=== PATIENT | female | born 1945 | race Caucasian/White ===

== ENCOUNTER 2023-12-25 11:15 | Emergency (ER) | payer MEDICARE, SELFPAY ==
[2023-12-25] VITALS (9 sets, daily range): BP systolic 141–168; BP diastolic 73–89; PULSE 64–75; RESP 18; TEMP 36.7; O2SAT 95–98; BMI 26.4
--- NOTE | 2023-12-25 11:24 | PC.NURSE ---
DR BLOOM AT BEDSIDE
--- NOTE | 2023-12-25 11:33 | CT_ITS ---
FINAL REPORT TECHNIQUE: Thin section axial images were obtained through the abdomen after intravenous contrast. Reconstruction images were obtained from the axial data. Exam was performed using dose reduction techniques. CLINICAL HISTORY: RLQ and suprapubic ttp FINDINGS: The lung bases are clear. The liver is homogeneous. The gallbladder is present. The spleen, adrenal glands, and pancreas are unremarkable. There are bilateral hypodense renal lesions, may represent cysts. Abdominal GI tract is without acute abnormality. There is no abdominal lymphadenopathy or ascites. The uterus is absent. The appendix is normal. There is diverticulosis. There is mild long segment wall thickening of the distal colon, mild colitis is not excluded. There is no pelvic lymphadenopathy or ascites. No acute osseous abnormalities identified. IMPRESSION: Bilateral renal lesions, may represent cysts. Long segment wall thickening of the distal colon, mild colitis is not excluded. Reviewed, Interpreted and Dictated by Becki Walker MD Transcribed by Vicki Pizano Authenticated and [facility]
--- NOTE | 2023-12-25 11:35 | ED_ITS ---
Discharge Plan Disposition Patient Disposition: Home, Self-Care Prescriptions Prescriptions: New dicyclomine 20 mg tablet 20 mg PO TID PRN (Reason: abdominal pain or spasm) 7 Days Qty: 21 0RF Referrals Follow up/Referrals: Lukas Humphrey MD [Staff Physician] - See instructions Carlos Manuel Torres DO [Staff Physician] - See instructions Jerad Nguyen MD [Staff Physician] - See instructions Activity Restrictions/Add. Instructions Additional Instructions/Restrictions: No emergent medical condition identified today. There is evidence of mild colitis on your CAT scan which is possibly infectious following recent antibiotic use cannot rule out C. difficile colitis at this point. Please take your stool specimen to primary care doctor tomorrow. We have made an appointment with Dr. Carlos Manuel Torres for you to see tomorrow as a new patient. Additionally I would recommend you follow-up with our urologist Dr. Humphrey or the urologist of your choosing as you did have blood in your urine and some questionable lesions on your kidneys which are most likely cysts but genitourinary malignancy is on the differential. Lastly given the fact you have not had a colonoscopy many years and that you have undiagnosed lower abdominal discomfort please follow-up with Dr. Beck Ruano for an outpatient colonoscopy Clinical Impressions Clinical Impression: Abdominal pain, lower, Diarrhea, Hematuria, Colitis, Renal lesion Instructions Patient Instructions: DI for Acute Abdominal Pain Discharge ED Provider: Mariana Bean General Adult HPI General Chief complaint: Abdominal Pain Stated complaint: Abd pain on R side Time Seen by Provider: 12/25/23 11:19 History of Present Illness HPI narrative: Is a 78-year-old female presenting to the emergency department today with prim [facility] for abdominal pain. States this began 3 weeks ago she went to her primary care doctor was diagnosed with urinary tract infection and started on ciprofloxacin. Subsequently had worsening abdominal pain and went to the emergency department [facility] in [place] and had a CT scan was also told nothing abnormal there but also that she had a urinary tract infection and a culture was sent. Subsequently after that she was started on Augmentin she finished that without any improvement. Now states she has had worsening diarrhea up to 6 times a day most recently yesterday. No blood but with worsening abdominal pain the right lower quadrant and suprapubic region. Has not had any diarrhea today yet. Denies any fevers or chills. States her urine is brown in color. Denies any myalgias. States that she just wants relief from her symptoms. Related Data Previous Rx's Medication Instructions Recorded dicyclomine 20 mg tablet 20 mg PO TID PRN abdominal pain or 12/25/23 spasm 7 days #21 tabs Allergies Allergy/AdvReac Type Severity Reaction Status Date / Time amlodipine Allergy Verified 12/25/23 13:24 codeine Allergy Verified 12/25/23 13:24 sulfamethoxazole Allergy Verified 12/25/23 13:24 [From Bactrim] trimethoprim [From Bactrim] Allergy Verified 12/25/23 13:24 [facility] Disclaimer: The information contained in this section may have been updated after the patient was seen, as this information can be updated by other users. Social History Smoking Status: Never smoker alcohol intake: never current occupational status: other Travel in the last 8 weeks: None ROS Obtained: Yes All systems reviewed & no additional complaints except as documented Physical Exam General General appearance: alert Respiratory Respiratory exam: Present normal lung sounds bilaterally Cardiovascular Cardiovascular exam: Present regular rate Abdominal Exam Abdominal exam: Present soft and tenderness (Right lower quadrant and suprapubic tenderness to palpation with no rebound or guarding); Absent distention Neurological Exam Neurological exam: Present alert Medical Decision Making Emiliano Inquiry Pt receiving controlled substance: No Vital Signs: 12/25/23 11:16 12/25/23 11:34 12/25/23 12:00 Temperature 98.0 F Temperature Source Oral Pulse Rate 69 64 Pulse Rate [Right] 70 Respiratory Rate 18 Blood Pressure 162/82 H 141/73 H Blood Pressure [Right Arm] 162/82 H Blood Pressure Mean 95 Blood Pressure Mean [Right Arm] 108 Blood Pressure Source [Right Arm] Automatic Cuff 02 Sat by Pulse Oximetry 98 98 98 Oxygen Delivery Method Room Air Room Air Room Air 12/25/23 12:30 12/25/23 13:00 12/25/23 13:30 Temperature Temperature Source Pulse Rate 75 64 69 Pulse Rate [Right] Respiratory Rate Blood Pressure 168/83 H 154/77 H 160/80 H Blood Pressure [Right Arm] Blood Pressure Mean 104 102 101 Blood Pressure Mean [Right Arm] Blood Pressure Source [Right Arm] 02 Sat by Pulse Oximetry 98 97 96 Oxygen Delivery Method Room Air Room Air Room Air 12/25/23 14:00 Temperature Temperature Source Pulse Rate 70 Pulse Rate [Right] Respiratory Rate Blood Pressure 154/76 H Blood Pressure [Right Arm] Blood Pressure Mean 102 Blood Pressure Mean [Right Arm] Blood Pressure Source [Right Arm] 02 Sat by Pulse Oximetry 95 Oxygen Delivery Method Room Air Lab Data Lab results reviewed: Yes I reviewed the patient's lab results. Lab Results 12/25/23 11:38: WBC 6.7, RBC 4.82, Hgb 13.6, Hct 43.4, MCV 90.0, MCH 28.3, MCHC 31.5 L, RDW 14.5, Plt Count 196, MPV 8.8, Neut % (Auto) 63.3, Lymph % (Auto) 26.3, [place] % (Auto) 7.2, Eos % (Auto) 2.8, Baso % (Auto) 0.4, Neut # (Auto) 4.2, Lymph # (Auto) 1.8, [place] # (Auto) 0.5, Eos # (Auto) 0.2, Baso # (Auto) 0.0, Sodium 139, Potassium 3.9, Chloride 107, Carbon Dioxide 29, Anion Gap 6.9, BUN 15, Creatinine 0.60, Estimated Creat Clear 47, Estimated GFR 97, Est GFR ( Amer) 117, Glucose 102 H, Lactate 0.8, Calcium 9.8, Phosphorus 3.8, Magnesium 1.9, Total Bilirubin 1.0, AST 29, ALT 16, Alkaline Phosphatase 102, Total Creatine Kinase 58, Total Protein 6.8, Albumin 4.1, Globulin 2.7, Albumin/Globulin Ratio 1.5 12/25/23 13:19: Urine Color Yellow, Urine Appearance Clear, Urine pH 6.0, Ur Specific [place] 1.010, Urine Protein Negative, Urine Glucose (UA) Negative, Urine Ketones Trace, Urine Blood 1+, Urine Nitrate Negative, Urine Bilirubin Negative, Urine Urobilinogen 0.2, Ur Leukocyte Esterase Negative, Urine RBC None, Urine WBC None, Ur Squamous Epith Cells Occasional, Urine Bacteria None 12/25/23 11:38 12/25/23 11:38 Orders (Tests/Meds): ED MEDICATIONS Discontinued Medications Generic Name Dose Route Start Last Admin Trade Name Freq PRN Reason Stop Dose Admin Acetaminophen 1,000 mg 12/25/23 11:33 12/25/23 11:42 Acetaminophen 1,000mg/100ml Vial IV 12/25/23 11:34 1,000 mg ONCE ONE Administration Lactated Ringer's 1,000 mls @ 999 mls/hr 12/25/23 11:45 12/25/23 11:42 Lactated Ringer's 1000 Ml Bag IV 12/25/23 12:45 999 mls/hr .Q1H1M HARISH Administration Iopamidol 75 ml 12/25/23 12:17 12/25/23 12:17 Iopamidol-370 (76%);100ml Bottle IV 12/25/23 12:18 75 ml ONCE ONE Administration Ondansetron HCl 4 mg 12/25/23 11:33 12/25/23 11:42 Ondansetron 4mg/2ml Vial IV 12/25/23 11:34 4 mg ONCE ONE Administration Sodium Chloride 10 ml 12/25/23 12:17 12/25/23 12:17 Sodium Chloride 0.9% 10ml Syr (Rad Only) IV 12/25/23 12:18 10 ml ONCE ONE Administration ORDERS Category Date Time Status CT abdomen pelvis w con Stat Cat Scan 12/25/23 11:33 Taken CBC w/Auto Diff [Complete Blood Count Auto Diff] Stat Lab 12/25/23 11:38 Completed CK [Creatine Kinase] Stat Lab 12/25/23 11:38 Completed CMP [Comprehensive Metabolic Panel] Stat Lab 12/25/23 11:38 Completed Diarrhea 23 Panel, PCR Stat Lab 12/25/23 11:33 Ordered Lactic Acid Stat Lab 12/25/23 11:38 Completed Magnesium Stat Lab 12/25/23 11:38 Completed Phosphorous Stat Lab 12/25/23 11:38 Completed UA [Urinalysis and Microscopic] Stat Lab 12/25/23 13:19 Results Medical Decision Narrative: Patient is a 78-year-old female presenting today with multiple complaints including right lower quadrant and suprapubic abdominal pain and dysuria and brown-colored urine as well as diarrhea. Differential includes refractory urinary tract infection with multidrug-resistant organism, fistula tract, superimposed colitis such as C. difficile colitis after the recent antibiotic use. Other forms of colitis such as ischemic or inflammatory colitis are also in the differential as well as other surgical pathology such as appendicitis. Will get a contrasted CT scan blood work comprehensive GI PCR panel and will reassess. IV fluids pain medicine nausea medicine have been administered and will reassess. Reassessment 2:52 PM labs unremarkable aside from some hematuria and CT scan I personally interpreted which shows no acute intra-abdominal pathology. There is questionable thickening of the bowel which may be mild colitis. I do suspect that she could possibly have C. difficile colitis but she was unable to provide a stool specimen while in the emergency department. A sample Has been sent with her and she has been given a follow-up appointment tomorrow with Dr. Carlos Manuel Torres to be a new patient. 2 other things 1 is that she has persistent lower abdominal discomfort no obvious pathology at the moment. Her abdominal pain preceded the diarrhea symptoms that she had to is likely not completely attributable to colitis. She has not had a colonoscopy many years and referral was made to our general surgeon to have this looked into further given the uncertainty of the ongoing symptoms. Lastly more concerning if she has had hematuria I was able to get the results from [facility] and she did not have clear evidence of urinary tract infection has failed to antibiotic regimens since that time it is not clear that this is from a urinary tract infection will not treat this further. However she also has some nonspecific lesions in bilateral kidneys which are most likely cysts but it is possible that she has an under lying genitourinary malignancy which could be causing her symptoms as well. Overall there remains diagnostic uncertainty the patient is very aware of this she will follow-up with urology general surgery/gastroenterology and her primary care physician. Critical Care Critical Care Time Critical Care Time: No
--- NOTE | 2023-12-25 11:40 | PC.NURSE ---
called [facility] to get records from pt been seen sometime in the last month. Medical records at [facility] states pt was seen in er on 12/11/23 and they would fax over md note,labs and ct scan
[2023-12-25] MEDS: ACETAMINOPHEN 1,000MG/100ML VIAL 1000 MG IV (11:42)
[2023-12-25] MEDS: LACTATED RINGERS 1000ML 1,000 ML 999 ML IV (11:42)
[2023-12-25] MEDS: ONDANSETRON 4MG/2ML VIAL 4 MG IV (11:42)
[2023-12-25 11:53] LABS: Basophils % 0.4 % (0.1-2.0); Eosinophils # 0.2 K/mm3 (0.0-0.4); Eosinophils % 2.8 % (0.1-12.0); Hematocrit 43.4 % (37.0-47.0); Hemoglobin 13.6 g/dL (12.2-16.2); Lymphocytes # 1.8 K/mm3 (0.7-4.5); Lymphocytes % 26.3 % (10-50); Mean Corpuscular HGB Conc 31.5 g/dL (31.8-35.4); Mean Corpuscular Hemoglobin 28.3 pg (27.0-31.2); Mean Platelet Volume 8.8 fl (7.4-10.4); Monocytes # 0.5 K/mm3 (0.1-1.0); Monocytes % 7.2 % (1.7-9.3); Neutrophils # 4.2 K/mm3 (1.8-7.8); Neutrophils % 63.3 % (37.0-80.0); Platelet Count 196 K/mm3 (142-424); Red Blood Count 4.82 M/mm3 (4.20-5.40); Red Cell Distribution Width 14.5 % (11.5-17.5); White Blood Count 6.7 K/mm3 (4.8-10.8)
[2023-12-25 11:54] LABS: Chloride 107 mmol/L (98-107); Potassium 3.9 mmoL/L (3.5-5.1); Sodium 139 mmol/L (136-145)
[2023-12-25 11:56] LABS: Alanine Aminotransferase 16 U/L (12-78); Alkaline Phosphatase 102 U/L (38-126); Aspartate Amino Transferase 29 U/L (14-36); Blood Urea Nitrogen 15 mg/dl (7-17); Creatinine Clearance Estimated 47 mL/min (50-200); Estimated Glomerular Filt Rate 97 ml/min (>60); GFR (African American) 117 ML/MIN (>60)
[2023-12-25 11:57] LABS: Albumin Level 4.1 g/dl (3.5-5.0); Albumin/Globulin Ratio 1.5 (1.1-1.8); Anion Gap 6.9 mEq/L (5-15); Calcium 9.8 mg/dl (8.4-10.2); Carbon Dioxide 29 mmol/L (22.0-30.0); Creatine Kinase 58 U/L (30-135); Globulin 2.7 g/dL (1.3-3.2); Glucose 102 mg/dl (74-100); Magnesium 1.9 mg/dl (1.6-2.3); Phosphorous 3.8 mg/dl (2.5-4.5); Total Protein,Serum 6.8 g/dl (6.3-8.2)
[2023-12-25 11:58] LABS: Lactic Acid 0.8 mmol/L (0.7-2.1)
--- NOTE | 2023-12-25 12:03 | PC.NURSE ---
fax was recieved from [facility] our er Md is still wanting urine culture and sensitivity report if they have, so calling back to [facility]
--- NOTE | 2023-12-25 12:08 | PC.NURSE ---
Patient to radiology.
[2023-12-25] MEDS: SODIUM CHLORIDE 0.9% 10ML SYR (RAD ONLY) 10 ML IV (12:17)
[2023-12-25] MEDS: IOPAMIDOL-370 (76%);100ML BOTTLE 75 ML IV (12:17)
--- NOTE | 2023-12-25 12:17 | PC.NURSE ---
Patient returned from radiology.
--- NOTE | 2023-12-25 12:30 | PC.NURSE ---
pt was given a warm blanket and pillow with case no other needs at this time,call light at bs
--- NOTE | 2023-12-25 12:30 | PC.NURSE ---
PT PROVIDED WARM BLANKET AND PILLOW. CALL LIGHT WITHIN REACH
[2023-12-25 13:23] LABS: Microscopic, Urine URINE MICROSCOPIC (MICROSCOPIC)
[2023-12-25 13:30] LABS: Appearance,Urine CLEAR (Clear); Bilirubin,Urine Negative (Negative); Blood, Urine 1+ (Negative); Color,Urine YELLOW (Yellow); Glucose,Urine (UA) Negative (Negative); Ketones,Urine TRACE (Negative); Leukocyte Esterase,Urine Negative (Negative); Nitrate,Urine Negative (Negative); Protein,Urine Negative (Negative); Urobilinogen,Urine 0.2 EU/dl (0.2)
--- NOTE | 2023-12-25 14:49 | PC.NURSE ---
MADE APPOINTMENT WITH DR KENDRICK CHARLES ON 12/26/2023 AT 2:30
[2023-12-25 14:51] LABS: Squamous Epithelial Cell,Urine Occasional #/hpf (0-5)
--- NOTE | 2023-12-25 14:59 | PC.NURSE ---
PT PROVIDED SUPPLIES FOR STOOL SPECIMEN COLLECTION AND DIRECTIONS FOR COLLECTION
[2023-12-25] MEDS: DICYCLOMINE 10MG CAPSULE 20 MG PO (15:04)
== END 2023-12-25 15:06 | disposition home or self-care (01) ==
PROVIDERS: Emergency Provider Student in an Organized Health Care Education/Training Program
DX: R10.31 Right lower quadrant pain (principal); R10.2 Pelvic and perineal pain; K52.9 Noninfective gastroenteritis and colitis, unspecified; R31.9 Hematuria, unspecified; N28.9 Disorder of kidney and ureter, unspecified
CPT/HCPCS: 74177; 80053; 81001; 82550; 83605; 83735; 84100; 85025; 96361; 96374; 96375; 99285; J0131; J2405; Q9967

== ENCOUNTER 2023-12-30 16:01 | Outpatient (CLI) | payer MEDICARE, SELFPAY ==
[2024-01-09 08:52] LABS: Atopobium vaginae 0; Candida albicans, NAA 0
[2024-01-09 08:53] LABS: Bacterial Vaginosis Associated 0; Candida glabrata, NAA 0
[2024-01-09 08:54] LABS: Megasphaera 1 0
== END 2023-12-30 23:59 ==
PROVIDERS: Visit Provider Urology
DX: R31.9 Hematuria, unspecified (principal); R10.31 Right lower quadrant pain; N39.0 Urinary tract infection, site not specified
CPT/HCPCS: 87563; 87798; 87801

== ENCOUNTER 2024-01-07 14:45 | Outpatient (CLI) | payer MEDICARE, SELFPAY ==
[2024-01-07 14:57] LABS: Microscopic, Urine URINE MICROSCOPIC (MICROSCOPIC)
[2024-01-07 15:15] LABS: Appearance,Urine CLEAR (Clear); Bilirubin,Urine Negative (Negative); Blood, Urine 2+ (Negative); Color,Urine YELLOW (Yellow); Glucose,Urine (UA) Negative (Negative); Ketones,Urine Negative (Negative); Leukocyte Esterase,Urine Negative (Negative); Nitrate,Urine Negative (Negative); PH,Urine 5.5 (5.0-8.5); Protein,Urine Negative (Negative); Specific Gravity, Urine >= 1.030 (1.005-1.030); Urobilinogen,Urine 0.2 EU/dl (0.2)
[2024-01-07 15:34] LABS: Blood Urea Nitrogen 18 mg/dl (7-17); Estimated Glomerular Filt Rate 97 ml/min (>60); GFR (African American) 117 ML/MIN (>60)
[2024-01-07 15:49] LABS: Bacteria,Urine Trace /lpf
== END 2024-01-07 23:59 ==
LOC: LAB 14:46
PROVIDERS: PCP Internal Medicine; Visit Provider Urology
DX: N39.0 Urinary tract infection, site not specified (principal); B95.2 Enterococcus as the cause of diseases classified elsewhere
CPT/HCPCS: 36415; 81001; 82565; 84520; 87086

== ENCOUNTER 2024-01-13 09:33 | Day surgery (SDC) | payer MEDICARE, SELFPAY ==
[2024-01-09 13:04] VITALS: BMI 26.3
[2024-01-13] MEDS: WATER FOR IRRIGATION,STERILE 1,000 ML 100 ML IR (01:15)
[2024-01-13 09:43] VITALS: BP 180/84; PULSE 69; RESP 18; TEMP 37.3; O2SAT 96
[2024-01-13 10:06] VITALS: BMI 28.0
[2024-01-13] MEDS: LIDOCAINE 2% UROJET 10ML 10 ML (10:15)
[2024-01-13 10:20] VITALS: BP 161/86; PULSE 67; RESP 16; O2SAT 95
--- NOTE | 2024-01-13 11:50 | [facility].PROCNOTE ---
[facility] Procedure Note Procedure Note:: Preop diagnosis hematuria Postop diagnosis: Hematuria Operation: Cystoscopy The patient was brought to the local cystoscopy room. She is prepped and draped using a sterile technique. Endoscopy using the 16 Marshallese flexible cystoscope shows the patient has moderate urethritis and a short urethra. The bladder itself is free of stone tumor hemorrhage or infection. The ureteral orifices are normal bilaterally with clear E flux of urine. The patient tolerated the procedure well and the cystoscope was removed.
== END 2024-01-13 10:32 | disposition home or self-care (01) ==
PROVIDERS: PCP Internal Medicine; Visit Provider Urology
PROC: 0TJB8ZZ Inspection of Bladder, Via Natural or Artificial Opening Endoscopic (ICD-10-PCS; CPT 52000; principal; 2024-01-13 10:45)
DX: R31.9 Hematuria, unspecified (principal); N34.2 Other urethritis
CPT/HCPCS: 52000

== ENCOUNTER 2024-01-28 07:36 | Outpatient (CLI) | payer MEDICARE, SELFPAY ==
--- NOTE | 2024-01-28 07:36 | MR_ITS ---
FINAL REPORT CLINICAL HISTORY: renal lesion. RIGHT LOWER QUADRANT PAIN FINDINGS: Multiplanar MR imaging of the pelvis was performed without and with contrast. Postoperative changes are seen from hysterectomy. There is mild diffuse bladder wall thickening which may be inflammatory. No mass or adenopathy is identified. No abnormal fluid collection is seen. There is no evidence of fracture or bony mass. Mild degenerative changes are noted at the right SI joint with mild bone marrow edema in the medial right iliac bone. Note is made of high-grade partial tears at the insertions of the bilateral gluteus minimus and medius tendons, right worse than left IMPRESSION: Mild bladder wall thickening which may be inflammatory. No mass or abnormal fluid collection identified within the pelvis. High-grade partial tears at the insertions of the gluteus minimus and medius tendons bilaterally, right greater than left, Authenticated and [facility]
--- NOTE | 2024-01-28 07:36 | MR_ITS ---
FINAL REPORT CLINICAL HISTORY: renal lesion. RIGHT LOWER QUADRANT PAIN FINDINGS: Multiplanar MR imaging of the abdomen was performed without and with contrast. Images of the liver reveal no evidence of mass. There is no evidence of biliary ductal dilatation. The gallbladder has an unremarkable appearance. There is no evidence of biliary ductal dilatation. Images of the pancreas and spleen are unremarkable. Multiple bilateral renal masses are present. The largest mass in the mid right kidney measures 20 mm and is consistent with a simple cyst. There are 2 right renal masses that do not have the appearance of simple cysts measuring 18 and 10 mm. These have an appearance most consistent with hemorrhagic cysts (Bosniak category 2). No adenopathy is identified. IMPRESSION: Multiple bilateral renal masses with imaging characteristics consistent with simple cysts. 2 right renal masses with an appearance consistent with hemorrhagic cysts. Authenticated and [facility]
[2024-01-28] MEDS: SODIUM CHLORIDE 0.9% 50ML BAG 35 ML IV (09:00)
[2024-01-28] MEDS: GADOTERIDOL INJ 17ML SYRINGE 13 ML IV (09:00)
[2024-01-28] MEDS: SODIUM CHLORIDE 0.9% 10ML SYR (RAD ONLY) 10 ML IV (09:00)
== END 2024-01-28 23:59 ==
LOC: RAD 07:36
PROVIDERS: PCP Internal Medicine; Visit Provider Urology
DX: N28.9 Disorder of kidney and ureter, unspecified (principal)
CPT/HCPCS: 72197; 74183; A9576

== ENCOUNTER 2024-02-10 14:48 | Outpatient (CLI) | payer MEDICARE, SELFPAY | END 2024-02-10 23:59 | disposition home or self-care (01) | LOC: LAB 14:49 | PROVIDERS: PCP Internal Medicine; Visit Provider Urology | DX: N39.0 Urinary tract infection, site not specified (principal) ==

== ENCOUNTER 2024-02-11 15:09 | Outpatient (CLI) | payer MEDICARE, SELFPAY ==
[2024-02-11 15:15] LABS: Microscopic, Urine URINE MICROSCOPIC (MICROSCOPIC)
[2024-02-11 16:50] LABS: Appearance,Urine CLEAR (Clear); Bilirubin,Urine Negative (Negative); Blood, Urine 2+ (Negative); Color,Urine YELLOW (Yellow); Glucose,Urine (UA) Negative (Negative); Ketones,Urine TRACE (Negative); Leukocyte Esterase,Urine Negative (Negative); Nitrate,Urine Negative (Negative); PH,Urine 5.5 (5.0-8.5); Protein,Urine Negative (Negative); Specific Gravity, Urine >= 1.030 (1.005-1.030); Urobilinogen,Urine 0.2 EU/dl (0.2)
[2024-02-11 17:42] LABS: Bacteria,Urine Trace /lpf; Squamous Epithelial Cell,Urine Occasional #/hpf (0-5); WBC,Urine Occasional #/hpf (0-3)
== END 2024-02-11 23:59 ==
LOC: LAB 15:11
PROVIDERS: PCP Internal Medicine; Visit Provider Urology
DX: N39.0 Urinary tract infection, site not specified (principal)
CPT/HCPCS: 81001

== ENCOUNTER 2024-05-11 13:37 | Outpatient (CLI) | payer MEDICARE, SELFPAY | END 2024-05-11 23:59 | disposition home or self-care (01) | LOC: LAB 13:39 | PROVIDERS: PCP Internal Medicine; Visit Provider Urology | DX: N28.1 Cyst of kidney, acquired (principal); N39.0 Urinary tract infection, site not specified | CPT/HCPCS: 88112 ==

== ENCOUNTER 2024-08-11 12:29 | Outpatient (CLI) | payer MEDICARE, SELFPAY ==
--- NOTE | 2024-08-11 12:29 | US_ITS ---
FINAL REPORT TECHNIQUE: Ultrasound images of the kidneys and bladder were obtained. CLINICAL HISTORY: .eval renal cysts seen on mri COMPARISON: MRI dated 01/28/2024 FINDINGS: The right kidney measures 9.5 cm in length. It is normal in echogenicity. There is no hydronephrosis. There are multiple anechoic structures present in the right kidney, that are consistent with renal cysts. There is a 2.1 x 1.4 cm focus with slightly irregular margins, hypoechoic, likely a complicated cyst. The left kidney measures 11 cm in length. It is normal in echogenicity. There is no hydronephrosis. There are multiple anechoic structures present in the left kidney, that are consistent with renal cysts. IMPRESSION: Multiple anechoic structures are present bilaterally in the kidneys, consistent with renal cysts. Right renal 2.1 x 1.4 cm hypoechoic focus with somewhat irregular margins, likely a complicated cyst. Follow-up imaging with renal ultrasound or renal protocol CT is suggested for further evaluation. Reviewed, Interpreted and Dictated by Nickolas Olguin MD Transcribed by Shoshana Mcneill Authenticated and [facility]
== END 2024-08-11 23:59 | disposition home or self-care (01) ==
LOC: RAD 12:29
PROVIDERS: PCP Internal Medicine; Visit Provider Urology
DX: N28.1 Cyst of kidney, acquired (principal)
CPT/HCPCS: 76770